=== PATIENT | male | born 1950 | race Two or more races ===

== ENCOUNTER 2023-12-05 08:00 | Outpatient (CLI) | payer OTHER ==
[~2023-12-05] VITALS: Ht 170.2 cm; Wt 108.9 kg
[~2023-12-05 08:00] MED LIST: ALLERGY RELIEF10 M3 PO; CHILDREN'S ASPI81 MG PO; COZAAR100 MG PO; GLIMEPIRIDE1 M1 PO; HORIZANT300 MG PO; METFORMIN HCL500 M3 PO; NABUMETONE750 MG PO; SIMVASTATIN5 MG PO; TYLENOL ARTHRI650 MG PO
[2023-12-05 09:26] LABS: COL EPI 120 SECONDS (82-175)
== END 2023-12-05 08:01 | disposition home or self-care (01) ==
LOC: LAB 08:00 → SURG 12-11 11:00 → EDSTATUS 12-11 11:00 → SURG 12-11 15:00
PROVIDERS: ATTEND Surgery
DX: R19.4 Change in bowel habit (principal); D12.3 Benign neoplasm of transverse colon; D37.4 Neoplasm of uncertain behavior of colon

== ENCOUNTER 2023-12-05 08:37 | Outpatient (CLI) | payer OTHER | END 2023-12-05 08:41 | disposition home or self-care (01) | LOC: NUCLEAR 08:37 | PROVIDERS: ATTEND Internal Medicine Geriatric Medicine | DX: I11.9 Hypertensive heart disease without heart failure (principal) ==